=== PATIENT | male | born 1980 | race Caucasian/White ===

== ENCOUNTER 2020-12-08 23:33 | Emergency (ER) | payer MEDICAID, OTHER ==
[~2020-12-08] VITALS: Ht 175.3 cm; Wt 104.0 kg
[~2020-12-08 23:33] MED LIST: METR250T PO; [UNRECOGNIZED DRUG - OTHER] PO
[2020-12-09] MEDS ORDERED: MORPHINE SULFATE 4 MG/ML CPJ (NOT FOR IM USE) IV STA (00:28)
[2020-12-09] MEDS ORDERED: KETOROLAC 30MG/ML VIAL IV STA (00:28)
[2020-12-09] MEDS ORDERED: ACETAMINOPHEN 325MG TABLET PO STA (00:28)
[2020-12-09] MEDS ORDERED: ONDANSETRON HCL 4MG/2ML INJ IV STA (00:28)
[2020-12-09 00:49] LABS: BASOPHILS % 0.6 % (0.0-2.0); HEMATOCRIT. 46.2 % (42.0-52.0); HEMOGLOBIN. 15.7 g/dL (14.0-18.0); LYMPHOCYTES % 25.5 % (20.0-50.0); MEAN CORPUSCULAR HEMOGLOBIN 30.9 pg (28.0-32.0); MEAN PLATELET VOLUME 7.4 fl (7.4-10.4); MONOCYTES % 9.1 % (2.0-8.0); NEUTROPHILS % 63.8 % (40.0-76.0); PLATELET 382 x1000/uL (130-400); RED BLOOD CELL COUNT 5.07 mill/uL (4.7-6.1); RED CELL DISTRIBUTION WIDTH 13.4 % (11.6-14.6)
[2020-12-09 00:52] LABS: CHLORIDE 105 mEq/L (98-107)
[2020-12-09 01:08] LABS: CLARITY URINE CLEAR (CLEAR); COLOR URINE YELLOW (YELLOW); KETONES URINE NEGATIVE (NEGATIVE); LEUKOCYTE ESTERASE URINE NEGATIVE (NEGATIVE); NITRITE URINE NEGATIVE (NEGATIVE); OCCULT BLOOD URINE 2+ (NEGATIVE); PROTEIN URINE NEGATIVE (NEGATIVE); SPECIFIC GRAVITY URINE 1.008 (1.005-1.030); UROBILINOGEN URINE 0.2 E.U./dL (0.2-1.0)
[2020-12-09 01:23] VITALS: BP 160/89
[2020-12-09] MEDS ORDERED: CYCLOBENZAPRINE 10MG TABLET PO ONE (01:45)
== END 2020-12-09 02:07 | disposition home or self-care (01) ==
LOC: ER 23:33
DX: M54.5 Low back pain (principal); G89.29 Other chronic pain
CPT/HCPCS: 36415; 80048; 81003; 85025; 93005; 96374; 96375; 99284; J1885; J2270; J2405